=== PATIENT | female | born 1985 | race Caucasian/White ===

== ENCOUNTER 2017-01-23 19:17 | Inpatient (IN) | payer OTHER ==
[~2017-01-23] VITALS: Ht 170.2 cm; Wt 84.8 kg
[2017-01-23] MEDS ORDERED: Lactated Ringer's 1,000 ML IV PRN (20:46)
[2017-01-23] MEDS ORDERED: fentaNYL-PF 50 mCg/mL 2 mL Inj IVPUSH PRN (20:50)
[2017-01-23] MEDS ORDERED: Hemorrhage Kit, Post Partum XX ONE (20:50)
[2017-01-23] MEDS ORDERED: Carboprost 250 mCg/mL Inj IM PRN (20:50)
[2017-01-23] MEDS ORDERED: Oxytocin 10 Unit/mL Inj IM PRN (20:50)
[2017-01-23] MEDS ORDERED: Sodium Chloride LOK Flush 10 mL Syringe IVFLUSH PRN (20:50)
[2017-01-23] MEDS ORDERED: Oxytocin 30 Units/500 mL LR 30 UNITS in IV Premix 1 EACH IV PRN (20:50)
[2017-01-23] MEDS ORDERED: Ondansetron 2 mg/mL 2 mL Inj IVPUSH PRN (20:50)
[2017-01-23] MEDS ORDERED: Methylergonovine 0.2 mg/mL Inj IM PRN (20:50)
--- NOTE | 2017-01-23 22:21 | HP ---
[address] [address] HISTORY AND PHYSICAL PATIENT: LAISHA GUTIERREZ : 1985 MR#: [id number] ADMIT: 01/23/2017 JOB ID: [id number] DATE: 01/23/2017 HISTORY OF PRESENT ILLNESS: The patient is a 31-year-old, 3, para 1, at 40 weeks and 3 days who presents to Labor and Delivery with complaint of contractions that started at 3:30 a.m. Irregular: Intense every 3 minutes. The patient has history of one delivery at 38 weeks in 2014 because of failure to progress, delivered a with weight 9 pounds and 13 ounces. She is willing to have trial of labor after delivery. heart rate tracing is reactive, category one. Baseline 140 beats per minute. Good accelerations. The patient is analy every 3 minutes. care is uncomplicated, labs were reviewed. She is blood group and type O-positive, rubella immune, group B strep negative. SOCIAL HISTORY: Patient denies smoking, alcohol, illicit recreational drug use. FAMILY HISTORY: Noncontributory. The patient is transferred at 26 weeks from [facility], success calculation showed 58%. PHYSICAL EXAMINATION: Vital signs: Blood pressure 128/62, temperature 36.7, pulse 82, respiratory rate 18. General: Awake, alert, oriented x3 in moderate distress because of contractions. HEENT: PERRLA. Chest: Good respiratory effort. Clear lungs bilaterally. Cardiovascular: Regular rate and rhythm. Abdomen: Gravid, nondistended, moderately tender with contractions. Neuro: 1+ DTRs bilaterally. Extremities: No pitting edema. Avionics Systems Engineer exam: The cervix is 4-5 cm dilated, 50% effaced, station -2. Intact membranes. Cephalic presentation. ASSESSMENT AND PLAN: The patient is a 31-year-old, 3, para 1, at 40 weeks and 3 days in active labor presents for a trial of labor after delivery. The consent for was obtained and the risks and benefits of TOLAC were discussed with the patient. Pain management will be provided with fentanyl. Epidural will be given as per patient's request. The labs were sent. IV hydration started with lactated Ringer at 125 mL/h. We will anticipate spontaneous vaginal delivery.
[2017-01-24] MEDS ORDERED: Carboprost 250 mCg/mL Inj IM PRN (04:20)
[2017-01-24] MEDS ORDERED: oxyCODONE-Acetamin 5-325 mg Tablet PO PRN (04:20)
[2017-01-24] MEDS ORDERED: Oxytocin 10 Unit/mL Inj IM PRN (04:20)
[2017-01-24] MEDS ORDERED: Oxytocin 30 Units/500 mL LR 30 UNITS in IV Premix 1 EACH IV PRN (04:20)
[2017-01-24] MEDS ORDERED: Hemorrhage Kit, Post Partum XX ONE (04:20)
[2017-01-24] MEDS ORDERED: Methylergonovine 0.2 mg/mL Inj IM PRN (04:20)
[2017-01-24] MEDS ORDERED: Lactated Ringer's 1,000 ML IV SCH (04:20)
[2017-01-24] MEDS ORDERED: LANOlin HPA 7 Gm Ointment TOPICAL PRN (04:20)
[2017-01-24] MEDS: Benzocaine (Dermoplast) 20% 60 Gm Spray TOPICAL PRN ×2 (04:41→07:45)
[2017-01-24] MEDS: Witch Hazel-Glycerin Pads TOPICAL PRN ×2 (04:45→07:45)
--- NOTE | 2017-01-24 07:11 | OP ---
[address] [address] OPERATIVE REPORT PATIENT: LAISHA GUTIERREZ : 1985 MR#: [id number] ADMIT: 01/23/2017 JOB ID: [id number] DATE OF SURGERY: 01/24/2017 SURGEON: Eusebio Penaloza MD PREOPERATIVE DIAGNOSIS(ES): A 31-year-old, 3, para 1, at 40 weeks and 3 days in active labor history of prior delivery. POSTOPERATIVE DIAGNOSIS(ES): 1. Vaginal after delivery. 2. Shoulder dystocia. PROCEDURE: The patient is a 31-year-old, 3, para 2 now who came to Labor and Delivery at 7:30 p.m. in active labor analy every 3 minutes. The patient had a prior delivery in 2014 for failure to progress, desires trial of labor after . At admission, she was examined and was 3-4 cm dilated, 50% effaced, -2 station. The patient has been analy every 2 minutes. heart rate tracing was reactive, category 1. Baseline 140 beats per minute. The patient was admitted for delivery. She has not received an epidural, declined it. She had spontaneous rupture of membranes at 9:47 p.m. Subsequently she was re-examined at 10:30 p.m. and was found to have a full bag of fluid that was ruptured and internal monitoring was placed. She had occasional variable decelerations that spontaneously resolved. At 2230 p.m. the patient's exam showed dilation 5 cm effacement 90%, station -1. She gradually progressed to full dilation at 3 o'clock in the morning and started pushing at around the same time. She had spontaneous vaginal delivery at 3:47 a.m., complicated by mild shoulder dystocia lasting 60 seconds that resolved with Madeline maneuver, suprapubic pressure, and Whatley screw maneuver. There was cord around the neck x1. The baby was delivered with scores of 6 at 1 minute and 9 at 5 minutes. Weight 4432 g, 9 pounds and 12 ounces. She had second degree midline vaginal and perineal laceration that was repaired with 3-0 Vicryl sutures. The placenta was delivered at 3:52 a.m., and was examined and found to be intact with three-vessel cord, the cord blood was sent. ESTIMATED BLOOD LOSS: 300 mL. Manager Bar was present at delivery. Delayed cord clamping was not allowed. Pitocin was started shortly after delivery of the .
[2017-01-24] MEDS: Ascorbic Acid 500 mg Tablet PO SCH ×2 (07:51→19:35)
--- NOTE | 2017-01-24 09:26 | PCM.PNOBPP ---
Subjective Date of Service Jan 24, 2017 Visit History The patient is a 31-year-old, 3, para 1, at 40 weeks and 3 days who presented to Labor and Delivery 01/23/17 with complaint of contractions that started at 3:30 a.m. Tracing showed Irregular contractions: Intense every 3 minutes. The patient has history of one delivery at 38 weeks in 2015 because of failure to progress, delivered a with weight 9 pounds and 13 ounces. She is willing to have trial of labor after delivery.At time of admission heart rate tracing is reactive, category one. Baseline 140 beats per minute. Good accelerations. The patient is analy every 3 minutes. care is uncomplicated, labs were reviewed. She is blood group and type O-positive, rubella immune, group B strep negative. Patient admitted for TOLAC in active labor. 01/23/17 at 2230 p.m. the patient's exam showed dilation 5 cm effacement 90%, station -1. She had spontaneous rupture of membranes at 9:47 p.m. She has not received an epidural,declined it. She was re-examined at 10:30 p.m. and was found to have a full bag of fluid that was ruptured and internal monitoring was placed. She had occasional variable decelerations that spontaneously resolved. She gradually progressed to full dilation at 0300 01/24 in the morning and started pushing at around the same time. She had spontaneous vaginal delivery at 0347 01/24/17, complicated by mild shoulder dystocia lasting 60 seconds that resolved with Madeline maneuver, suprapubic pressure, and Whatley screw maneuver. There was cord around the neck x1. The baby was delivered with scores of 6 at 1 minute and 9 at 5 minutes. Weight 4432 g, 9 pounds and 12 ounces. She had second degree midline vaginal and perineal laceration that was repaired with 3- 0 Vicryl sutures. The placenta was delivered at 3:52 a.m., and was examined and found to be intact with three-vessel cord, the cord blood was sent. 01/24/[id number] doing well noted to have light lochia pain well controlled with PO pain meds, able to Bm and urinate without difficulty, ambulating in room . Denies nausea, vomiting, fever, chills. care is uncomplicated, labs were reviewed. She is blood group and type O-positive, rubella immune, group B strep negative. Subjective Today patient doing well noted to have light lochia pain well controlled with PO pain meds, able to Bm and urinate without difficulty, ambulating in room . Denies nausea, vomiting, fever, chills. Labs care is uncomplicated, labs were reviewed. She is blood group and type O-positive, rubella immune, group B strep negative. Group B Strep Results: Negative Rubella: Immune Blood Type: O RH Type: Positive Labs Laboratory Tests 01/23/17 19:15: Hold Purple Top Tube Received Exam Vital Signs Vital Signs: VS reviewed, stable Exam Abdomen: Fundus firm Perineum: Intact : UOP has been Lungs: Clear to Auscultation, Normal Air Movement Heart: Regular Rate/Rhythm, Normal S1, Normal S2 General: Alert, Oriented X3, No Acute Distress OB Post Assessment/Plan Assessment The patient is a 31-year-old, 3, para 1, at 40 weeks and 3 days in active labor presents for a trial of labor after delivery. Patient delivered 0347 01/24/17. Pain Evaluation: Adequate Pain Control Post plan: Continue routine post care Plan: Continue routine post care Ibuprofen 800 mg Q8 hrs for pain Hydrocodone 5-325 mg PO pain Q 6 hrs Colase 100 mg PO BID Vitamin C PO QD FeSo4 325 mg BID Repeat CBC in AM Attending Statement I saw patient and examined her. I agree with above plan. JENNIFER FERRER DO Jan 24, 2017 09:26 Rosy Stovall MD Jan 26, 2017 16:00
[2017-01-25 07:48] LABS: Mean Corpuscular Hemoglobin 30.1 pg (27.0-35.0)
--- NOTE | 2017-01-25 09:11 | PCM.DC.OB ---
Obstetrical Discharge Summary Date of Service Jan 25, 2017 Date of hospital admission Jan 23, 2017 at 19:20 Date of Discharge: Jan 25, 2017 Providers Admitting Physician: Eusebio Penaloza MD Primary Care Physician: Nopchristy Attending Physician: Eusebio Penaloza MD Diagnosis at Time of Discharge S/P TOLAC Problems: Brief History and Physical: The patient is a 31-year-old, 3, para 1, at 40 weeks and 3 days who presented to Labor and Delivery 01/23/17 with complaint of contractions that started at 3:30 a.m. Tracing showed Irregular contractions: Intense every 3 minutes. The patient has history of one delivery at 38 weeks in 2014 because of failure to progress, delivered a with weight 9 pounds and 13 ounces. She is willing to have trial of labor after delivery.At time of admission heart rate tracing is reactive, category one. Baseline 140 beats per minute. Good accelerations. The patient is analy every 3 minutes. care is uncomplicated, labs were reviewed. She is blood group and type O-positive, rubella immune, group B strep negative. Patient admitted for TOLAC in active labor.PPD2 light lochia, slowing down, pain well controlled with PO pain meds, able to Bm and urinate without difficulty, ambulating in room . Denies nausea, vomiting, fever, chills, dysuria , pelvic pain. Patient V/S stable, afebrile at time of discharge. Exam Abdomen: Fundus firm Perineum: Intact, repair healing well, no purulent drainage noted. : UOP has been Lungs: Clear to Auscultation, Normal Air Movement Heart: Regular Rate/Rhythm, Normal S1, Normal S2 General: Alert, Oriented X3, No Acute Distress Hospital Course: The patient is a 31-year-old, 3, para 1, at 40 weeks and 3 days who presented to Labor and Delivery 01/23/17 with complaint of contractions that started at 3:30 a.m. Tracing showed Irregular contractions: Intense every 3 minutes. The patient has history of one delivery at 38 weeks in 2014 because of failure to progress, delivered a with weight 9 pounds and 13 ounces. She is willing to have trial of labor after delivery.At time of admission heart rate tracing is reactive, category one. Baseline 140 beats per minute. Good accelerations. The patient is analy every 3 minutes. care is uncomplicated, labs were reviewed. She is blood group and type O-positive, rubella immune, group B strep negative. Patient admitted for TOLAC in active labor. 01/23/17 at 2230 p.m. the patient's exam showed dilation 5 cm effacement 90%, station -1. She had spontaneous rupture of membranes at 9:47 p.m. She has not received an epidural,declined it. She was re-examined at 10:30 p.m. and was found to have a full bag of fluid that was ruptured and internal monitoring was placed. She had occasional variable decelerations that spontaneously resolved. She gradually progressed to full dilation at 0300 01/24 in the morning and started pushing at around the same time. She had spontaneous vaginal delivery at 0347 01/24/17, complicated by mild shoulder dystocia lasting 60 seconds that resolved with Madeline maneuver, suprapubic pressure, and Whatley screw maneuver. There was cord around the neck x1. The baby was delivered with scores of 6 at 1 minute and 9 at 5 minutes. Weight 4432 g, 9 pounds and 12 ounces. She had second degree midline vaginal and perineal laceration that was repaired with 3- 0 Vicryl sutures. The placenta was delivered at 3:52 a.m., and was examined and found to be intact with three-vessel cord, the cord blood was sent. 01/24/[id number] doing well noted to have light lochia pain well controlled with PO pain meds, able to Bm and urinate without difficulty, ambulating in room . Denies nausea, vomiting, fever, chills. 01/25/17PPD2 >24 hours after delivery light lochia, slowing down, pain well controlled with PO pain meds, able to Bm and urinate without difficulty, ambulating in room . Denies nausea, vomiting, fever, chills, dysuria, pelvic pain. Patient V/S stable, afebrile at time of discharge. ([Benzocaine]) 1 SPRAY/GM SPRAY 1 SPRAY TOPICAL PRN PRN PRN for perineal pain Prescribed by: JENNIFER FERRER DO ([Lanolin]) 2 APPLIC/GM OINT 1 APPLIC TOPICAL PRN PRN PRN apply to nipples Prescribed by: JENNIFER FERRER DO ([Ascorbic Acid]) 500 MG TABLET 500 MG PO BIDWM Prescribed by: JENNIFER FERRER DO Docusate Sodium (Colace) 100 Mg Capsule 100 MG PO BID Prescribed by: JENNIFER FERRER DO Ferrous Sulfate (Feosol) 325 Mg Tablet 325 MG PO BIDWM Prescribed by: JENNIFER FERRER DO Witch Roxanna/Glycerin (A.e.r Pads) 12 Towelette/Pkg Towelette 1 PAD TOPICAL PRN PRN PRN for perineal pain Prescribed by: JENNIFER FERRER DO oxyCODONE-Acetaminophen 5-325 mg (oxyCODONE-Acetaminophen 5-325 mg) 1 Each Tablet 1-2 TAB PO Q4H PRN PRN For Pain Prescribed by: JENNIFER FERRER DO Discharge Medications: Colase 100 mg BID FeSo4 325 mg BID Ibuprofen 800 mg every 8 hours Percocet 5-325 mg every 1-2 tab 6 hours for breakthrough pain Vitamin C daily Continue vitamins. Disposition DC home Follow-up plan Follow up 6 weeks in clinic Patient instructions Follow up 6 weeks in women's health clinic for check Pelvic rest 6 weeks Colase 100 mg BID FeSo4 325 mg BID Ibuprofen 800 mg every 8 hours Percocet 5-325 mg every 1-2 tab 6 hours for breakthrough pain Vitamin C daily Continue vitamins. As discussed contraception post , patient would like Mirena and will discuss contraceptive at follow up visit. Call our office and seek emergency medical care if you experience worsening mood , depression, thoughts of hurting self or others. Fever, chills, severe nausea, vomiting, chest pain, shortness of breath, worsening bleeding. JENNIFER FERRER DO Jan 25, 2017 09:11
[2017-01-25] MEDS: Ascorbic Acid 500 mg Tablet PO SCH (09:16)
--- NOTE | 2017-01-25 09:19 | PCM.DIOB ---
Obstetrical Disch Instruction Date of Service: Jan 25, 2017 Dates of Hospitalization Date of Hospital Admission Jan 23, 2017 at 19:20 Providers Admitting Physician: Eusebio Penaloza MD Primary Care Physician: Nopcp Attending Physician: Eusebio Penaloza MD Discharge Diagnosis Discharge Diagnosis S/p TOLAC delivered at term via Problems: Diet Discharge Diet: No restrictions Activity Discharge Activity-General: Pelvic Rest for 6 weeks, Try not to overdue, Be up and about, No lifting >15 pounds for 2 weeks, No lifting >10 pounds for 4-6 weeks Dressing and Incisional Care Hygiene: May shower, May shower after, DO NOT soak incision under water, NO bathtub, hot tub or whirlpool, Dermoplast spray, Witch Roxanna pads Additional Instructions Discharge Instructions Follow up 6 weeks in women's health clinic for check Pelvic rest 6 weeks Colase 100 mg BID FeSo4 325 mg BID Ibuprofen 800 mg every 8 hours Percocet 5-325 mg every 1-2 tab 6 hours for breakthrough pain Vitamin C daily Continue vitamins. For more information regarding Mirena please look at the manufacture website or at bedsider.org for more information on contraceptives in general. Call our office and seek emergency medical care if you experience worsening mood , depression, thoughts of hurting self or others. Fever, chills, severe nausea, vomiting, chest pain, shortness of breath, worsening bleeding. Follow Up Plan Follow Up Plan Follow up 6 weeks in women's health clinic for check Pelvic rest 6 weeks Call your provider for: Fever or Chills, Shortness of breath, Heavy vaginal bleeding, Heavy bleeding, Epigastric pain, Excessive constipation, Vaginal discomfort, Red painful breasts JENNIFER FERRER DO Jan 25, 2017 09:19
[2017-01-25] MEDS ORDERED: FERR-74 PO (09:21)
[2017-01-25] MEDS ORDERED: Benzocaine TOPICAL (09:21)
[2017-01-25] MEDS ORDERED: Ascorbic Acid PO (09:21)
[2017-01-25] MEDS ORDERED: DOCU-41 PO (09:21)
[2017-01-25] MEDS ORDERED: Lanolin TOPICAL (09:21)
[2017-01-25] MEDS ORDERED: OXYC1TAB24 PO (09:21)
[2017-01-25] MEDS ORDERED: TUCPAD TOPICAL (09:21)
[2017-01-25 11:33] VITALS: BP 111/74; PULSE 87; RESP 16
== END 2017-01-25 12:40 | disposition home or self-care (01) | DRG 775 ==
LOC: FBCO 19:17 → FBC 19:20
PROVIDERS: ADMIT Legal Medicine; ATTEND Legal Medicine
PROC: 10E0XZZ Delivery of Products of Conception, External Approach (ICD-10-PCS; principal; 2017-01-24)
PROC: 0KQM0ZZ Repair Perineum Muscle, Open Approach (ICD-10-PCS; 2017-01-24)
PROC: 10907ZC Drainage of Amniotic Fluid, Therapeutic from Products of Conception, Via Natural or Artificial Opening (ICD-10-PCS; 2017-01-24)
PROC: 10S0XZZ Reposition Products of Conception, External Approach (ICD-10-PCS; 2017-01-24)
DX: O66.0 Obstructed labor due to shoulder dystocia (principal); Z3A.40 40 weeks gestation of pregnancy; Z37.0 Single live birth; O34.219 Maternal care for unspecified type scar from previous cesarean delivery; O70.1 Second degree perineal laceration during delivery; O69.81X0 Labor and delivery complicated by cord around neck, without compression, not applicable or unspecified